=== PATIENT | female | born 1995 | race Caucasian/White ===

== ENCOUNTER 2020-10-11 11:46 | Emergency (ER) | payer OTHER ==
[~2020-10-11] VITALS: Ht 172.7 cm; Wt 144.7 kg
[~2020-10-11 11:46] MED LIST: METFORMIN HCL500 MG PO; SUDAFED PE PRE1 EAC2 PO
[2020-10-11] MEDS ORDERED: HYDROCHLOROTHIA25 MG PO (12:33)
[2020-10-11] MEDS ORDERED: LABETALOL HCL100 MG PO (12:33)
[2020-10-11] MEDS ORDERED: VICTOZA 2-0.6 MG/0.1 SUB-Q (12:34)
== END 2020-10-11 16:35 | disposition home or self-care (01) ==
LOC: ED 11:46
DX: N93.9 Abnormal uterine and vaginal bleeding, unspecified (principal); G89.18 Other acute postprocedural pain; R10.10 Upper abdominal pain, unspecified; E11.9 Type 2 diabetes mellitus without complications; I10 Essential (primary) hypertension; Z88.2 Allergy status to sulfonamides; Z88.1 Allergy status to other antibiotic agents; Z88.5 Allergy status to narcotic agent; Z79.899 Other long term (current) drug therapy
CPT/HCPCS: 76705; 80053; 83690; 84703; 85025; 99284-25; J7030

== ENCOUNTER 2021-03-04 16:18 | Emergency (ER) | payer OTHER ==
[~2021-03-04] VITALS: Ht 172.7 cm; Wt 137.4 kg
[~2021-03-04 16:18] MED LIST changes: +HYDROCHLOROTHIA25 MG PO; +LABETALOL HCL100 MG PO; +VICTOZA 2-0.6 MG/0.1 SUB-Q
[2021-03-04] MEDS ORDERED: ALBUTEROL2.5 MG/3 M INH (17:00)
[2021-03-04] MEDS ORDERED: OMEPRAZOLE40 MG PO (17:00)
[2021-03-04] MEDS ORDERED: LARIN FE 1-201 EACH PO (17:01)
[2021-03-04] MEDS ORDERED: MELOXICAM15 MG PO (17:01)
[2021-03-04] MEDS ORDERED: HYDROCODON-ACE1 EA10 PO (18:43)
== END 2021-03-04 19:05 | disposition home or self-care (01) ==
LOC: ED 16:18
DX: S39.012A Strain of muscle, fascia and tendon of lower back, initial encounter (principal); E11.9 Type 2 diabetes mellitus without complications; I10 Essential (primary) hypertension; Z88.2 Allergy status to sulfonamides; Z88.1 Allergy status to other antibiotic agents; Z88.8 Allergy status to other drugs, medicaments and biological substances; Z88.5 Allergy status to narcotic agent; Z79.899 Other long term (current) drug therapy; Z79.84 Long term (current) use of oral hypoglycemic drugs; X50.0XXA Overexertion from strenuous movement or load, initial encounter
CPT/HCPCS: 72100; 99283-25